=== PATIENT | male | born 2000 | race African-American/Black ===

== ENCOUNTER 2022-11-02 19:24 | Emergency (ER) | payer OTHER ==
[~2022-11-02] VITALS: Ht 175.3 cm; Wt 65.3 kg
[2022-11-02] MEDS ORDERED: LACTULOSE20 GM/30 M PO (20:55)
[2022-11-02 21:03] VITALS: BP 137/78
== END 2022-11-02 21:03 | disposition home or self-care (01) ==
LOC: FSED 19:34
DX: R10.32 Left lower quadrant pain (principal); R10.814 Left lower quadrant abdominal tenderness; K59.00 Constipation, unspecified
CPT/HCPCS: 74176; 80053; 81003; 85025; 99284

== ENCOUNTER 2024-04-20 17:48 | Emergency (ER) | payer SELFPAY ==
[~2024-04-20] VITALS: Ht 175.3 cm; Wt 65.8 kg
[~2024-04-20 17:48] MED LIST: AMOXICILLIN875 MG PO; CLEOCIN HCL300 MG PO; IBUPROFEN600 MG PO; KETOROLAC TROME10 MG PO; LACTULOSE20 GM/30 M PO
[2024-04-20 18:52] VITALS: PULSE 86; RESP 18; TEMP 98.7; O2SAT 98
[2024-04-20] MEDS: FAMOTIDINE 20 MG/2 ML VIAL IV STA (19:25)
[2024-04-20] MEDS: SODIUM CHLORIDE 0.9% 1000ML 1,000 ML IV ONE (19:25)
[2024-04-20] MEDS ORDERED: IOPAMIDOL 370 MG/ML 100 ML INFUS..BTL INJ ONE (19:56)
[2024-04-20] MEDS ORDERED: PEPCID20 MG PO (21:49)
[2024-04-20 22:04] VITALS: BP 126/78; PULSE 88; RESP 18; TEMP 98
== END 2024-04-20 21:59 | disposition home or self-care (01) ==
LOC: FSED 18:39
DX: R10.13 Epigastric pain (principal)
CPT/HCPCS: 74177; 99284; J7030; Q9967